=== PATIENT | male | born 1995 | race American Indian/Alaskan Native ===

== ENCOUNTER 2016-12-31 06:15 | Emergency (ER) | payer OTHER ==
[2016-12-31] MEDS ORDERED: DILAUDID IV ONE (06:47)
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
[2016-12-31] MEDS ORDERED: NACL 0.9% 1000 ML 1,000 ML IV ONE (07:32)
[2016-12-31] MEDS ORDERED: AMIDATE IV ONE (07:32)
--- NOTE | 2016-12-31 07:50 | XRay Report ---
RIGHT SHOULDER, 2 VIEWS History: Right shoulder pain. Findings: No comparison. An anterior, inferior dislocation is identified at the right glenohumeral joint. There is no obvious fracture on 2 views. The clavicle and a.c. joint are normal. Impression: Anterior, inferior dislocation at the right glenohumeral joint.
--- NOTE | 2016-12-31 08:27 | XRay Report ---
RIGHT SHOULDER, ONE VIEW 0809 hrs. History: Postreduction film, right shoulder pain. Findings: A limited AP view of the right shoulder demonstrates successful reduction of the anterior, inferior dislocation at the right shoulder since 0647 hours. There is no obvious fracture on this limited exam. Impression: Successful reduction of the right shoulder dislocation.
[2016-12-31 10:54] VITALS: BP 109/72
== END 2016-12-31 10:55 | disposition home or self-care (01) ==
LOC: ED 06:15
DX: S43.004A Unspecified dislocation of right shoulder joint, initial encounter (principal); Z98.890 Other specified postprocedural states; X58.XXXA Exposure to other specified factors, initial encounter; Y93.89 Activity, other specified; Y99.9 Unspecified external cause status; Y92.009 Unspecified place in unspecified non-institutional (private) residence as the place of occurrence of the external cause
CPT/HCPCS: 23650; 73020; 73030; 93005; 93010; 96361; 96374; 99284; J1170; J7030

== ENCOUNTER 2017-02-24 02:34 | Emergency (ER) | payer OTHER ==
[2017-02-24] MEDS ORDERED: DIPRIVAN 10 MG/ML IV ONE (03:13)
[2017-02-24] MEDS ORDERED: MORPHINE IV ONE (03:13)
[2017-02-24] MEDS ORDERED: NACL 0.9% 1000 ML 1,000 ML IV ONE (03:14)
--- NOTE | 2017-02-24 04:55 | Emergency Department Report ---
HPI - General Chief Complaint: Extremity Injury, Upper Time Seen by Provider: 02/24/17 03:12 - HPI HPI: The patient is a 21-year-old male who presents for evaluation of right shoulder pain. The patient reports right shoulder pain onset 30 minutes prior to arrival , constant since onset, 10/10 in severity, sharp in quality, exacerbated with attempted movement of the right arm at the shoulder joint. The patient shares that his pain began after sneezing. He denies trauma to the arm. He has a history of recurrent shoulder dislocations. He also denies paresthesias, motor deficit, fever. ED Past Medical Hx - Past Medical History Previous Medical History?: Yes - Surgical History Past Surgical History?: Yes Additional Surgical History: RIGHT SHOULDER - Social History Smoking Status: Never Smoker Substance Use Type: None - Medications Home Medications: Home Medications Medication Instructions Recorded Confirmed Last Taken Type Diazepam Tab [Valium] 5 mg PO TID PRN #15 tablet 02/24/17 Unknown Rx HYDROcodone/APAP 7.5-325 [[place] 1 each PO Q8HR PRN #12 tablet 02/24/17 Unknown Rx 7.5-325 mg TAB] ED Review of Systems ROS: Stated complaint: POSS RT SHOULDER DISLOCATION Other details as noted in HPI Constitutional: denies: fever ENT: denies: throat or neck pain Respiratory: denies: cough, shortness of breath Cardiovascular: denies: chest pain Endocrine: denies unexplained weight loss or gain Gastrointestinal: denies: abdominal pain, nausea Genitourinary: denies: dysuria Musculoskeletal: reports rt arm pain Skin: denies: rash Neurological: denies: headache Hematological/Lymphatic: denies: easy bleeding or easy bruising Psych: denies sadness or hopelessness Physical Exam - Physical Exam Vital Signs: Vital Signs 02/24/17 02/24/17 02/24/17 02:39 03:00 03:11 Temperature 98.1 F Pulse Rate 85 83 77 Pulse Rate [ Intra-Procedure ] Pulse Rate [ Post-Procedure] Pulse Rate [Pre -Procedure] Respiratory 18 23 9 L Rate Respiratory Rate [Intra- Procedure] Respiratory Rate [Post- Procedure] Respiratory Rate [Pre- Procedure] Blood Pressure 136/96 Blood Pressure [Intra- Procedure] Blood Pressure [Post-Procedure ] Blood Pressure [Pre-Procedure] O2 Sat by Pulse 100 91 100 Oximetry O2 Sat by Pulse Oximetry [ Intra-Procedure ] O2 Sat by Pulse Oximetry [Post -Procedure] O2 Sat by Pulse Oximetry [Pre- Procedure] 02/24/17 02/24/17 02/24/17 03:21 03:30 03:41 Temperature Pulse Rate 82 75 86 Pulse Rate [ Intra-Procedure ] Pulse Rate [ Post-Procedure] Pulse Rate [Pre -Procedure] Respiratory 15 11 L 15 Rate Respiratory Rate [Intra- Procedure] Respiratory Rate [Post- Procedure] Respiratory Rate [Pre- Procedure] Blood Pressure 120/86 133/92 133/92 Blood Pressure [Intra- Procedure] Blood Pressure [Post-Procedure ] Blood Pressure [Pre-Procedure] O2 Sat by Pulse 100 100 100 Oximetry O2 Sat by Pulse Oximetry [ Intra-Procedure ] O2 Sat by Pulse Oximetry [Post -Procedure] O2 Sat by Pulse Oximetry [Pre- Procedure] 02/24/17 02/24/17 02/24/17 03:51 04:00 04:10 Temperature Pulse Rate 84 67 70 Pulse Rate [ Intra-Procedure ] Pulse Rate [ Post-Procedure] Pulse Rate [Pre -Procedure] Respiratory 19 20 26 H Rate Respiratory Rate [Intra- Procedure] Respiratory Rate [Post- Procedure] Respiratory Rate [Pre- Procedure] Blood Pressure 114/96 109/66 112/70 Blood Pressure [Intra- Procedure] Blood Pressure [Post-Procedure ] Blood Pressure [Pre-Procedure] O2 Sat by Pulse 100 97 Oximetry O2 Sat by Pulse Oximetry [ Intra-Procedure ] O2 Sat by Pulse Oximetry [Post -Procedure] O2 Sat by Pulse Oximetry [Pre- Procedure] 02/24/17 04:13 Temperature Pulse Rate Pulse Rate [ 79 Intra-Procedure ] Pulse Rate [ 74 Post-Procedure] Pulse Rate [Pre 93 H -Procedure] Respiratory Rate Respiratory 12 Rate [Intra- Procedure] Respiratory 15 Rate [Post- Procedure] Respiratory 16 Rate [Pre- Procedure] Blood Pressure Blood Pressure 108/67 [Intra- Procedure] Blood Pressure 110/66 [Post-Procedure ] Blood Pressure 114/96 [Pre-Procedure] O2 Sat by Pulse Oximetry O2 Sat by Pulse 100 Oximetry [ Intra-Procedure ] O2 Sat by Pulse 100 Oximetry [Post -Procedure] O2 Sat by Pulse 100 Oximetry [Pre- Procedure] Physical Exam: General: well-nourished, well-developed, no acute distress Head: Normocephalic, atraumatic Eyes: normal sclera ENT: Mucous membranes are pink and moist Neck: trachea midline, neck supple, No neck stiffness, no cervical adenopathy Respiratory: Breath sounds equal bilaterally, no wheezing, rales, or rhonchi Cardio: S1 and S2 present, no murmurs, rubs, gallops, capillary refill is brisk Abdomen: Normoactive bowel sounds, soft abdomen, no rigidity, no guarding or rebound tenderness Musc: Obvious deformity to the right shoulder present, right shoulder tender to palpation, distal sensation, motor function, and pulses intact in the right arm , no swelling or edema in the arm Skin: No rash Neuro: no facial drooping, normal speech Psych: Normal affect ED Course Vital Signs 02/24/17 02/24/17 02/24/17 02:39 03:00 03:11 Temperature 98.1 F Pulse Rate 85 83 77 Pulse Rate [ Intra-Procedure ] Pulse Rate [ Post-Procedure] Pulse Rate [Pre -Procedure] Respiratory 18 23 9 L Rate Respiratory Rate [Intra- Procedure] Respiratory Rate [Post- Procedure] Respiratory Rate [Pre- Procedure] Blood Pressure 136/96 Blood Pressure [Intra- Procedure] Blood Pressure [Post-Procedure ] Blood Pressure [Pre-Procedure] O2 Sat by Pulse 100 91 100 Oximetry O2 Sat by Pulse Oximetry [ Intra-Procedure ] O2 Sat by Pulse Oximetry [Post -Procedure] O2 Sat by Pulse Oximetry [Pre- Procedure] 02/24/17 02/24/17 02/24/17 03:21 03:30 03:41 Temperature Pulse Rate 82 75 86 Pulse Rate [ Intra-Procedure ] Pulse Rate [ Post-Procedure] Pulse Rate [Pre -Procedure] Respiratory 15 11 L 15 Rate Respiratory Rate [Intra- Procedure] Respiratory Rate [Post- Procedure] Respiratory Rate [Pre- Procedure] Blood Pressure 120/86 133/92 133/92 Blood Pressure [Intra- Procedure] Blood Pressure [Post-Procedure ] Blood Pressure [Pre-Procedure] O2 Sat by Pulse 100 100 100 Oximetry O2 Sat by Pulse Oximetry [ Intra-Procedure ] O2 Sat by Pulse Oximetry [Post -Procedure] O2 Sat by Pulse Oximetry [Pre- Procedure] 02/24/17 02/24/17 02/24/17 03:51 04:00 04:10 Temperature Pulse Rate 84 67 70 Pulse Rate [ Intra-Procedure ] Pulse Rate [ Post-Procedure] Pulse Rate [Pre -Procedure] Respiratory 19 20 26 H Rate Respiratory Rate [Intra- Procedure] Respiratory Rate [Post- Procedure] Respiratory Rate [Pre- Procedure] Blood Pressure 114/96 109/66 112/70 Blood Pressure [Intra- Procedure] Blood Pressure [Post-Procedure ] Blood Pressure [Pre-Procedure] O2 Sat by Pulse 100 97 Oximetry O2 Sat by Pulse Oximetry [ Intra-Procedure ] O2 Sat by Pulse Oximetry [Post -Procedure] O2 Sat by Pulse Oximetry [Pre- Procedure] 02/24/17 04:13 Temperature Pulse Rate Pulse Rate [ 79 Intra-Procedure ] Pulse Rate [ 74 Post-Procedure] Pulse Rate [Pre 93 H -Procedure] Respiratory Rate Respiratory 12 Rate [Intra- Procedure] Respiratory 15 Rate [Post- Procedure] Respiratory 16 Rate [Pre- Procedure] Blood Pressure Blood Pressure 108/67 [Intra- Procedure] Blood Pressure 110/66 [Post-Procedure ] Blood Pressure 114/96 [Pre-Procedure] O2 Sat by Pulse Oximetry O2 Sat by Pulse 100 Oximetry [ Intra-Procedure ] O2 Sat by Pulse 100 Oximetry [Post -Procedure] O2 Sat by Pulse 100 Oximetry [Pre- Procedure] - Moderate Sedation Indications: fracture/dislocation redu Presedation Evaluation: lt shoulder disc ASA Class: I Mallampati Airway Score: 1 Time of Last PO Intake: 00:00 (time out performed at 350, procedure ended at 354) Preparation: youth nutritional monitor applied, pulse oximeter, capnometry used, supplemental O2 applied, suction/airway equipment at bedside IV Propofol Dose (mgs): 100 Complications: none Patient Tolerated Procedure: well, no complications - Orthopedic Joint Reduction Joint #1 Consent Obtained: verbal consent Time Out Performed: Yes (350) Side: right Joint Reduction Location: shoulder Analgesia: moderate sedation Shoulder Technique Used (if applicable): traction/counter-traction Post-Reduction Neuro Exam: intact Post-Reduction Vascular Exam: intact Post Reduction X-Ray Obtained: Yes Post Reduction X-Ray Results: reduced Splint Applied: No (shoulder sling applied) Patient Tolerated Procedure: well, no complications ED Medical Decision Making - Medical Decision Making The patient was seen and examined by myself. The patient is placed on a youth nutritional monitor and continuous pulse ox. On initial evaluation, the patient was found to be in no distress. Evaluation orders were placed. The patient is given IV morphine for his pain. X-ray of the right shoulder reveals an anterior dislocated right shoulder. The patient was consented regarding risks and benefits of conscious sedation and reduction of this located right shoulder. The patient reports understanding and is able to verbalize risks and benefits. Conscious sedation and reduction of right shoulder dislocation successfully performed. A repeat x-ray of the right shoulder is obtained and reveals reduced right shoulder. The patient was reevaluated and reported that their symptoms were markedly improved. The patient is stable for discharge with outpatient follow-up. The patient is given follow-up and return instructions. The patient expressed understanding and agreed with the plan. The patient is discharged in stable condition. Critical care attestation.: If time is entered above; I have spent that time in minutes in the direct care of this critically ill patient, excluding procedure time. ED Disposition Clinical Impression: Acute pain of right shoulder Anterior dislocation of right shoulder Qualifiers: Encounter type: initial encounter Qualified Code(s): S43.014A - Anterior dislocation of right humerus, initial encounter Disposition: DISCHARGED TO HOME OR SELFCARE Is pt being admited?: No Does the pt Need Aspirin: No Condition: Stable Instructions: Shoulder Dislocation (ED) Additional Instructions: Do not take more than the prescribed dose of norco/pain medicine, or combine or take the norco/pain medicine prescribed to you today with other pain medicine, the muscle relaxer/anxiolytic valium prescribed to you, sleeping medicine or other sedatives, or with alcohol, as doing so may cause central nervous system sedation and respiratory depression, and potentially cause you to stop breathing and . Additionally, do not drive a vehicle, operate heavy machinery, or engage in any activity that would cause harm to yourself or others after taking the pain medicine prescribed to you. Prescriptions: Diazepam Tab [Valium] 5 mg PO TID PRN #15 tablet PRN Reason: Anxiety HYDROcodone/APAP 7.5-325 [[place] 7.5-325 mg TAB] 1 each PO Q8HR PRN #12 tablet PRN Reason: Pain Referrals: PRIMARY CARE, [Primary Care Provider] - 3-5 Days Forms: Work/School Release Form(ED) Time of Disposition: 04:53
[2017-02-24 05:16] VITALS: BP 114/75
--- NOTE | 2017-02-24 07:31 | XRay Report ---
RIGHT SHOULDER RADIOGRAPH INDICATION: Postreduction. Deformity. COMPARISON: 2:54 AM earlier today. FINDINGS: Portable, single, frontal right shoulder view, 4:03 AM, 02/24/2017 now demonstrates satisfactory humeral head position against the glenoid. No definite acute fracture identified. Intact acromioclavicular articulation as well. EKG leads. CONCLUSION: Satisfactory post reduction right shoulder radiograph, as described. Please correlate. Thank you for the opportunity to participate in this patient's care.
--- NOTE | 2017-02-24 09:35 | XRay Report ---
RIGHT SHOULDER RADIOGRAPHS INDICATION: Shoulder pain, dislocation. COMPARISON: 12/31/2016 FINDINGS: Frontal and attempted Y views of the right shoulder suggest anteroinferior glenohumeral dislocation. No apparent fracture, though approximately 1 x 0.5 cm lucency/possible subchondral cyst may be present along the humeral head articular surface laterally. Intact AC articulation. Normal imaged lung and ribs. CONCLUSION: Right shoulder dislocation again noted, as described. Thank you for the opportunity to participate in this patient's care.
== END 2017-02-24 05:17 | disposition home or self-care (01) ==
LOC: ED 02:34
DX: S43.014A Anterior dislocation of right humerus, initial encounter (principal); X58.XXXA Exposure to other specified factors, initial encounter; Y93.89 Activity, other specified; Y92.89 Other specified places as the place of occurrence of the external cause; Y99.8 Other external cause status
CPT/HCPCS: 23650; 73020; 73030; 96361; 96374; 99284; J2270; J2704; J7030

== ENCOUNTER 2017-03-27 05:05 | Emergency (ER) | payer OTHER ==
[2017-03-27] MEDS ORDERED: AMIDATE IV ONE (05:15)
--- NOTE | 2017-03-27 05:36 | Emergency Department Report ---
ED Upper Extremity Inj HPI - General Chief Complaint: Extremity Injury, Upper Stated Complaint: RIGHT SHOULDER PAIN Time Seen by Provider: 03/27/17 05:15 Source: patient Mode of arrival: Ambulatory Limitations: No Limitations - History of Present Illness Initial Comments: 21-year-old male presents to the emergency department complaining of her right shoulder dislocation. Patient states he has had multiple dislocations of the right shoulder in the past. He states that he was sleeping tonight. When he woke up he felt a pop in his right shoulder. Patient is complaining of pain in the right shoulder. There are no other complaints. Patient states that he has dislocated the right shoulder 5 or 6 times in the past. MD Complaint: Injury to:: right, shoulder -: Sudden, During the night Other Extremity Injury: Shoulder: Right Other Injuries: none Handedness: right Place: home Severity scale (0 -10): 8 Improves With: none Worsens With: movement of extremity Associated Symptoms: denies other symptoms Treatments Prior to Arrival: splint - Related Data Previous Rx's Medication Instructions Recorded Last Taken Type HYDROcodone/APAP 7.5-325 [[place] 1 each PO Q8HR PRN #12 tablet 03/27/17 Unknown Rx 7.5-325 mg TAB] Allergies Allergy/AdvReac Type Severity Reaction Status Date / Time No Known Allergies Allergy Verified 12/31/16 06:24 ED Review of Systems ROS: Stated complaint: RIGHT SHOULDER PAIN Other details as noted in HPI Comment: All other systems reviewed and negative Musculoskeletal: as per HPI, arthralgia ED Past Medical Hx - Past Medical History Previous Medical History?: Yes Additional medical history: SHOULDER DISLOCATION - Surgical History Past Surgical History?: Yes Additional Surgical History: RIGHT SHOULDER - Family History Family history: no significant - Social History Smoking Status: Never Smoker Substance Use Type: None - Medications Home Medications: Home Medications Medication Instructions Recorded Confirmed Last Taken Type HYDROcodone/APAP 7.5-325 [[place] 1 each PO Q8HR PRN #12 tablet 03/27/17 Unknown Rx 7.5-325 mg TAB] ED Physical Exam - General Limitations: No Limitations General appearance: alert, in no apparent distress - Head Head exam: Present: atraumatic, normocephalic - Eye Eye exam: Present: normal appearance, PERRL, EOMI - ENT ENT exam: Present: normal exam, normal orophraynx, mucous membranes moist - Neck Neck exam: Present: normal inspection, full ROM. Absent: tenderness - Respiratory Respiratory exam: Present: normal lung sounds bilaterally. Absent: respiratory distress - Cardiovascular Cardiovascular Exam: Present: regular rate, normal rhythm, normal heart sounds - GI/Abdominal GI/Abdominal exam: Present: soft, normal bowel sounds. Absent: distended, tenderness - Extremities Exam Extremities exam: Present: other (deformity noted to the right shoulder, consistent with anterior dislocation. Tenderness to palpation over the shoulder joint. Sensation is intact. Remainder of extremities are unremarkable.) - Back Exam Back exam: Present: normal inspection, full ROM. Absent: tenderness - Neurological Exam Neurological exam: Present: alert, oriented X3. Absent: motor sensory deficit - Skin Skin exam: Present: warm, dry, intact ED Course Vital Signs 03/27/17 03/27/17 03/27/17 05:07 05:26 05:28 Temperature 98.3 F Pulse Rate 76 Pulse Rate [ 84 Intra-Procedure ] Pulse Rate [Pre 80 -Procedure] Respiratory 18 20 Rate Respiratory 18 Rate [Intra- Procedure] Respiratory 20 Rate [Pre- Procedure] Blood Pressure 118/83 Blood Pressure 122/88 [Intra- Procedure] O2 Sat by Pulse 100 98 Oximetry O2 Sat by Pulse 99 Oximetry [ Intra-Procedure ] O2 Sat by Pulse 99 Oximetry [Pre- Procedure] - Moderate Sedation Indications: fracture/dislocation redu ASA Class: I Mallampati Airway Score: 1 Preparation: state appellate clerk applied, pulse oximeter, capnometry used, supplemental O2 applied, IV secured IV Etomidate Dose (mgs): 20 Complications: none Patient Tolerated Procedure: well Additional Comments: Total sedation time was 10 minutes. - Orthopedic Joint Reduction Joint #1 Consent Obtained: verbal consent Time Out Performed: Yes Side: right Joint Reduction Location: shoulder Analgesia: moderate sedation Shoulder Technique Used (if applicable): external rotation Post-Reduction Neuro Exam: intact Post-Reduction Vascular Exam: intact Post Reduction X-Ray Obtained: Yes Post Reduction X-Ray Results: reduced Splint Applied: Yes Patient Tolerated Procedure: well ED Medical Decision Making - Radiology Data Radiology results: image reviewed interpreted by me: Post reduction x-ray shows mildly subluxed right humeral head. No fracture is identified. - Medical Decision Making Imaging results reviewed and discussed with the patient. Patient will be discharged home at this time to follow up with his orthopedic surgeon. Patient is instructed to wear the shoulder immobilizer until seen by orthopedics. - Differential Diagnosis shoulder dislocation Critical care attestation.: If time is entered above; I have spent that time in minutes in the direct care of this critically ill patient, excluding procedure time. ED Disposition Clinical Impression: Dislocation of shoulder, right, closed Qualifiers: Encounter type: initial encounter Qualified Code(s): S43.004A - Unspecified dislocation of right shoulder joint, initial encounter Disposition: DISCHARGED TO HOME OR SELFCARE Is pt being admited?: No Condition: Stable Instructions: Shoulder Dislocation (ED) Prescriptions: HYDROcodone/APAP 7.5-325 [[place] 7.5-325 mg TAB] 1 each PO Q8HR PRN #12 tablet PRN Reason: Pain Referrals: PRIMARY CARE,MD [Primary Care Provider] - 3-5 Days Time of Disposition: 05:41
[2017-03-27 06:33] VITALS: BP 111/86
--- NOTE | 2017-03-27 09:20 | XRay Report ---
RIGHT SHOULDER, ONE VIEW History: Pain, dislocation, postreduction film. Findings: Single view of the right shoulder is presented which demonstrates anatomic alignment at the glenohumeral joint and a.c. joint. No fracture is appreciated. The soft tissues are unremarkable. Impression: Anatomic alignment at the right shoulder.
== END 2017-03-27 06:38 | disposition home or self-care (01) ==
LOC: ED 05:05
DX: S43.004A Unspecified dislocation of right shoulder joint, initial encounter (principal); X58.XXXA Exposure to other specified factors, initial encounter; Y93.89 Activity, other specified; Y99.8 Other external cause status; Y92.89 Other specified places as the place of occurrence of the external cause
CPT/HCPCS: 96374

== ENCOUNTER 2017-05-29 23:35 | Emergency (ER) | payer OTHER ==
[2017-05-30 00:53] VITALS: BP 122/79
== END 2017-05-30 01:00 | disposition left against medical advice (07) ==
LOC: ED 23:35
DX: Z04.1 Encounter for examination and observation following transport accident (principal); Z53.21 Procedure and treatment not carried out due to patient leaving prior to being seen by health care provider